=== PATIENT | male | born 1995 | race Caucasian/White ===

== ENCOUNTER 2016-12-01 00:30 | Emergency (ER) | payer OTHER ==
[2016-12-01 00:39] VITALS: BP 149/88
--- NOTE | 2016-12-01 00:44 | EDM.PDOC ---
ED HPI GENERAL MEDICAL PROBLEM - General Chief Complaint: ENT Problem Stated Complaint: TOOTH PAIN Time Seen by Provider: 12/01/16 00:38 - History of Present Illness INITIAL COMMENTS - FREE TEXT/NARRATIVE: 21-year-old male presents emergency room with dental pain. This is been going on for the last week or so but progressively got worse tonight to the point where he has shooting pain from his lower jaw up into his right ear. Patient has extensive dental problems however he has not seen a dentist in 5 years or so. Patient denies any fevers or chills - Related Data Allergies Allergy/AdvReac Type Severity Reaction Status Date / Time No Known Allergies Allergy Verified 12/01/16 00:40 Home Meds: Home Meds . [No Known Home Meds] 12/01/16 [History] Social & Family History - Alcohol Use Days Per Week of Alcohol Use: 2 Number of Drinks Per Day: 5 Total Drinks Per Week: 10 - Recreational Drug Use Recreational Drug Use: No ED ROS ENT - Review of Systems Review Of Systems: See Below Constitutional: Reports: No Symptoms HEENT: Reports: Dental Pain, Ear Pain Respiratory: Reports: No Symptoms Cardiovascular: Reports: No Symptoms GI/Abdominal: Reports: No Symptoms ED EXAM, ENT - Physical Exam Exam: See Below Exam Limited By: No Limitations General Appearance: Alert, No Apparent Distress Eye Exam: Bilateral Eye: Normal Inspection Ears: Normal External Exam, Normal Canal, Normal TMs Nose: Normal Inspection Mouth/Throat: Normal Lips, Normal Oropharynx, Other (Patient has extensive dental caries multiple repairs in the past and these need revisions. He has several teeth that are very tender on his right lower jaw) Head: Atraumatic, Normocephalic Neck: Normal Inspection, Supple, Non-Tender. No: Lymphadenopathy (L), Lymphadenopathy (R) Respiratory/Chest: No Respiratory Distress, Lungs Clear, Normal Breath Sounds Cardiovascular: Regular Rate, Rhythm, No Edema, No Murmur Departure - Departure Time of Disposition: 00:46 Disposition: Home, Self-Care 01 Clinical Impression: Dental caries - Discharge Information Referrals: Hue Mathur, DIAL PAINTER [Primary Care Provider] - Additional Instructions: Return the emergency room with any questions problems worsening symptoms. You must get in to see her dentist as soon as possible we cannot fix your teeth here in the emergency room. You have been started on penicillin, this is an antibiotic take one 4 times a day for 10 days until all gone. #40 from the machine in the waiting room. Use ibuprofen as needed for pain. Take with food. You've also been giving some [place], or hydrocodone take one every 4-6 hours as needed for more severe pain. Allow 12 hours after using this medication before driving or returning to work. Your given #10 from the machine in the waiting room.
== END 2016-12-01 00:57 | disposition home or self-care (01) ==
LOC: JD.ED 00:30
DX: K02.9 Dental caries, unspecified (principal)
CPT/HCPCS: 99282; 99283

== ENCOUNTER 2022-12-15 19:50 | Emergency (ER) | payer OTHER ==
[2022-12-15 20:39] VITALS: BP 142/82; PULSE 100
[2022-12-15] MEDS ORDERED: Ibuprofen 800 MG Tab PO ONE (21:40)
[2022-12-15] MEDS ORDERED: Penicillin V Potassium 500 MG Tab PO ONE (21:41)
== END 2022-12-15 22:07 | disposition home or self-care (01) ==
LOC: JD.ED 19:50
DX: K04.7 Periapical abscess without sinus (principal); K02.9 Dental caries, unspecified; J45.909 Unspecified asthma, uncomplicated; F17.210 Nicotine dependence, cigarettes, uncomplicated; Z79.899 Other long term (current) drug therapy
CPT/HCPCS: 99282; A9270; 99283